=== PATIENT | female | born 2005 | race Hispanic/Latino ===

== ENCOUNTER 2023-07-09 09:41 | Emergency (ER) | payer OTHER ==
[~2023-07-09] VITALS: Ht 165.1 cm; Wt 49.9 kg
[2023-07-09 09:43] VITALS: BP 117/56; PULSE 96; RESP 16
[2023-07-09 10:40] LABS: RAPID GROUP A STREP negative (NEGATIVE)
[2023-07-09 10:50] LABS: INFLUENZA TYPE A Negative For Type A (NEGATIVE); INFLUENZA TYPE B Negative For Type B (NEGATIVE)
[2023-07-09 10:52] LABS: SARS-CoV-2, RNA, NAAT NEGATIVE SARS CoV-2 (NEGATIVE)
[2023-07-09] MEDS ORDERED: GUAI5LIQ13 PO (11:12)
== END 2023-07-09 11:34 | disposition home or self-care (01) ==
LOC: EDH 09:41
DX: J06.9 Acute upper respiratory infection, unspecified (principal); Z20.822 Contact with and (suspected) exposure to COVID-19
CPT/HCPCS: 87635; 87804; 87880